=== PATIENT | male | born 2000 | race Hispanic/Latino ===

== ENCOUNTER 2018-06-17 04:42 | Emergency (ER) | payer OTHER, SELFPAY ==
[2018-06-17] MEDS ORDERED: Fluorescein Opthalmic Strip ONE (06:01)
[2018-06-17] MEDS ORDERED: Proparacaine 0.5% Opth 15 ML BOT ONE (06:01)
== END 2018-06-17 15:49 | disposition home or self-care (01) ==
LOC: ERS 04:42
DX: S05.02XA Injury of conjunctiva and corneal abrasion without foreign body, left eye, initial encounter (principal); X58.XXXA Exposure to other specified factors, initial encounter
CPT/HCPCS: 99282

== ENCOUNTER 2025-04-07 22:03 | Emergency (ER) | payer SELFPAY ==
[2025-04-08] MEDS ORDERED: Ibuprofen 200 MG TAB ONE (00:31)
[2025-04-08] MEDS ORDERED: Acetaminophen/Codeine 30-300mg Tablet ONE (00:33)
== END 2025-04-08 00:35 | disposition home or self-care (01) ==
LOC: ERS 22:03
DX: S02.5XXA Fracture of tooth (traumatic), initial encounter for closed fracture (principal); K04.7 Periapical abscess without sinus; F17.210 Nicotine dependence, cigarettes, uncomplicated; X58.XXXA Exposure to other specified factors, initial encounter
CPT/HCPCS: 99282